=== PATIENT | female | born 1950 | race Caucasian/White ===

== ENCOUNTER → 2017-08-18 | Outpatient (CLI) | payer OTHER | LOC: BRMIMAGING 10:09 | PROVIDERS: ATTEND Internal Medicine Rheumatology | DX: M47.816 Spondylosis without myelopathy or radiculopathy, lumbar region (principal); M19.041 Primary osteoarthritis, right hand; M19.042 Primary osteoarthritis, left hand | CPT/HCPCS: 72100-PO; 73130-PO ==

== ENCOUNTER → 2017-11-07 | Outpatient (CLI) | payer OTHER | LOC: BRMIMAGING 13:45 | PROVIDERS: ATTEND Internal Medicine Rheumatology | DX: M25.561 Pain in right knee (principal) | CPT/HCPCS: 73562-PO ==